=== PATIENT | female | born 1995 | race Caucasian/White ===

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

== ENCOUNTER 2017-03-28 21:22 | Emergency (ER) | payer OTHER ==
[~2017-03-28] VITALS: Ht 170.2 cm; Wt 75.7 kg
[2017-03-28 21:24] VITALS: TEMP 37.1; Ht 170.2 cm; Wt 75.7 kg
[2017-03-28] MEDS ORDERED: KETOROLAC TROMETHAMINE 15 MG/ML VIAL IV STA (21:58)
[2017-03-28 23:03] LABS: BASO % 0.1 %; BASO ABS # 0.01 K/uL (0-0.2); COMPLETE YES; EOS % 1.2 %; HEMATOCRIT 42.5 % (37-47); IG% 0.2 %; LYMPH % 33.5 %; MEAN CELL VOLUME 88.2 fL (80-100); MEAN CORPUSCULAR HEMOGLOBIN 29.5 pg (25-34); MEAN CORPUSCULAR HGB CONC 33.4 g/dl (32-36); MEAN PLATELET VOLUME 10.5 fL (7.4-10.4); MONO % 9.1 %; NEUT % 55.9 %; PLATELET COUNT 243 K/uL (130-400); RED BLOOD COUNT 4.82 M/uL (4.2-5.4); WHITE BLOOD COUNT 8.36 K/uL (4.8-10.8)
[2017-03-28] MEDS ORDERED: CHOL1000 PO (23:04)
[2017-03-28 23:31] LABS: BUN/CREATININE RATIO 19.7 (10-20); CALCIUM 9.5 mg/dl (8.5-10.1); CREATININE 0.79 mg/dl (0.60-1.20); POTASSIUM 3.4 mmol/L (3.5-5.1)
[2017-03-28 23:33] LABS: ALB/GLOB RATIO 1.1 (0.9-2)
[2017-03-29 00:35] LABS: URINE APPEARANCE CLEAR (CLEAR); URINE BILIRUBIN NEG (NEG); URINE COLOR YELLOW; URINE NITRITE NEG (NEG); URINE SPECIFIC GRAVITY 1.012 (1.000-1.030); UROBILINOGEN NEG (NEG); ZZUR CULT IF INDIC CLEAN CATCH NO
[2017-03-29 00:37] LABS: MANUAL MICROSCOPIC REQUIRED? NO; REVIEW REQ? NO
--- NOTE | 2017-03-29 02:46 | EMERGENCY ROOM VISIT NOTE ---
History First contact with patient: 21:34 Chief Complaint: ABDOMINAL PAIN Stated Complaint: ABD PAIN Nursing Triage Summary: Pt reports left sided abd pain that began yesterday, subsided this morning, returned worse this evening. Denies urinary s/sx. Denies n/v/d. History of Present Illness The patient is a 22 year old female who presents to the Emergency Room with complaints of left lower abdominal pain. The patient reports that she developed some stabbing left lower quadrant abdominal pain last night. She states this lasted for 1.5-2 hours and then resolved. She states the pain returned today. She rates the discomfort a 7/10. She states it is intermittent in the left lower abdomen. She denies any associated nausea, vomiting, urinary symptoms or changes in bowel movements. She does not have a history of abdominal surgeries. She denies any abnormal vaginal discharge. Her last menstrual period was at the beginning of the month. She states the pain is worsened with walking and moving. Review of Systems A complete 10 point review of systems was reviewed with the patient with pertinent positives and negatives as per history of present illness. All else were negative. Social History Smoking Status: Never Smoker Current/Historical Medications Scheduled Cholecalciferol (Vitamin D3), 1,000 INTER.UNIT PO DAILY Physical Exam Vital Signs Date Time Temp Pulse Resp B/P (MAP) Pulse Ox O2 Delivery O2 Flow Rate FiO2 03/29/17 02:56 85 16 114/69 98 03/29/17 02:32 85 16 114/69 98 Room Air 03/29/17 00:19 91 18 120/66 98 Room Air 03/28/17 21:24 37.1 105 18 125/78 97 Room Air Physical Exam VITALS: Vitals are noted on the nurse's note and reviewed by myself. Vital signs stable. GENERAL: This is a 22-year-old female, in no acute distress, nondiaphoretic, well-developed well-nourished. SKIN: Capillary reflex less than 2 seconds. HEENT: Normocephalic. PERRLA. EOMI. Nares patent. Mucous membranes moist. Neck is supple without nuchal rigidity. HEART: Regular rate and rhythm without murmurs gallops or rubs. LUNGS: Clear to auscultation bilaterally without wheezes, rales or rhonchi. No retractions or accessory muscle use. ABDOMEN: Positive bowel sounds x 4. There is mild tenderness in the left lower quadrant and suprapubic region. No guarding or rebound tenderness. NEURO: Patient was alert and oriented to person place and time. Medical Decision & Procedures ER Provider Diagnostic Interpretation: US PELVIC/ENDOVAG: Complex right adnexal lesion measuring 2.7 x 2.0 x 2.1 cm. Appearance is most suggestive of a hemorrhagic cyst, but there is a 2 mm vascular mural nodule and follow-up is recommended. Left ovary is within normal limits. Blood flow demonstrated in bilateral ovaries. Retroverted uterus. Uterus is mildly enlarged. The tracker complex is within normal limits. Small amount of simple free fluid in pelvis. Radiologist: Nadir Huff MD Laboratory Results 03/28/17 22:45 Red Blood Count 4.82, Mean Corpuscular Volume 88.2, Mean Corpuscular Hemoglobin 29.5, Mean Corpuscular Hemoglobin Concent 33.4, Mean Platelet Volume 10.5, Neutrophils (%) (Auto) 55.9, Lymphocytes (%) (Auto) 33.5, Monocytes (%) (Auto) 9.1, Eosinophils (%) (Auto) 1.2, Basophils (%) (Auto) 0.1, Neutrophils # (Auto) 4.67, Lymphocytes # (Auto) 2.80, Monocytes # (Auto) 0.76, Eosinophils # (Auto) 0.10, Basophils # (Auto) 0.01 03/28/17 22:45 Test 03/28/17 22:45 03/29/17 00:20 White Blood Count 8.36 K/uL (4.8-10.8) Red Blood Count 4.82 M/uL (4.2-5.4) Hemoglobin 14.2 g/dL (12.0-16.0) Hematocrit 42.5 % (37-47) Mean Corpuscular Volume 88.2 fL (80-100) Mean Corpuscular Hemoglobin 29.5 pg (25-34) Mean Corpuscular Hemoglobin Concent 33.4 g/dl (32-36) Platelet Count 243 K/uL (130-400) Mean Platelet Volume 10.5 fL (7.4-10.4) Neutrophils (%) (Auto) 55.9 % Lymphocytes (%) (Auto) 33.5 % Monocytes (%) (Auto) 9.1 % Eosinophils (%) (Auto) 1.2 % Basophils (%) (Auto) 0.1 % Neutrophils # (Auto) 4.67 K/uL (1.4-6.5) Lymphocytes # (Auto) 2.80 K/uL (1.2-3.4) Monocytes # (Auto) 0.76 K/uL (0.11-0.59) Eosinophils # (Auto) 0.10 K/uL (0-0.5) Basophils # (Auto) 0.01 K/uL (0-0.2) RDW Standard Deviation 41.3 fL (36.4-46.3) RDW Coefficient of Variation 12.9 % (11.5-14.5) Immature Granulocyte % (Auto) 0.2 % Immature Granulocyte # (Auto) 0.02 K/uL (0.00-0.02) Anion Gap 10.0 mmol/L (3-11) Est Creatinine Clear Calc Drug Dose 120.6 ml/min Estimated GFR () 124.9 Estimated GFR (Non- 107.8 BUN/Creatinine Ratio 19.7 (10-20) Calcium Level 9.5 mg/dl (8.5-10.1) Total Bilirubin 0.3 mg/dl (0.2-1) Aspartate Amino Transf (AST/SGOT) 18 U/L (15-37) Alanine Aminotransferase (ALT/SGPT) 27 U/L (12-78) Alkaline Phosphatase 60 U/L (45-117) Total Protein 8.0 gm/dl (6.4-8.2) Albumin 4.1 gm/dl (3.4-5.0) Globulin 3.9 gm/dl (2.5-4.0) Albumin/Globulin Ratio 1.1 (0.9-2) Lipase 91 U/L (73-393) Urine Color YELLOW Urine Appearance CLEAR (CLEAR) Urine pH 7.0 (4.5-7.5) Urine Specific [place] 1.012 (1.000-1.030) Urine Protein NEG (NEG) Urine Glucose (UA) NEG (NEG) Urine Ketones NEG (NEG) Urine Occult Blood NEG (NEG) Urine Nitrite NEG (NEG) Urine Bilirubin NEG (NEG) Urine Urobilinogen NEG (NEG) Urine Leukocyte Esterase NEG (NEG) Urine Test NEG (NEG) Medications Administered Medications (Trade) Dose Ordered Sig/Rylee Route Start Time Stop Time Status Last Admin Dose Admin Ketorolac Tromethamine (Toradol Inj) 15 mg NOW STAT IV 03/28/17 21:58 03/28/17 22:00 DC 03/28/17 23:04 15 MG ED Course The patient was evaluated as above. Labs were drawn and IV access was obtained. Patient was medicated with 15 mg Toradol IV. Patient was reevaluated and states that her pain has resolved after receiving the Toradol. Pelvic ultrasound was performed and read by mariorad as above. Discharge instructions were reviewed with the patient. The patient verbalized understanding of my assessment and treatment plan and was discharged home in good condition. Medical Decision Differential diagnosis includes ovarian cyst, recurrent torsion, ectopic , appendicitis, gastroenteritis, urinary tract infection, among others. The patient is a 22-year-old female who presents today complaining of left lower quadrant abdominal pain. Labs revealed no leukocytosis, anemia or concerning electrolyte abnormalities. Urinalysis was not suggestive of infection. Urine was negative. Pelvic ultrasound was obtained and did show a right-sided ovarian cyst and small amount of simple free fluid within the pelvis. The patient's pain resolved after receiving Toradol. There is nothing on exam to suggest an acute infectious or inflammatory process. I do not feel that any further imaging is necessary. Findings were discussed with the patient. She will follow-up with her primary care provider or [facility] as needed. She was advised to follow-up with [facility] , as she will need a repeat pelvic ultrasound. She was encouraged to take ibuprofen at home for pain. The patient's case was reviewed with Dr. Blood, ED attending physician, who agreed with my assessment and treatment plan. Based on the patient's presentation and work up, I feel the patient is stable for outpatient treatment. The patient was educated to return to the emergency department for any worsening of their current condition or new/concerning symptoms. She will follow up with her [facility] and PCP. Medication Reconcilliation Current Medication List: was personally reviewed by me Blood Pressure Screening Patient's blood pressure: Normal blood pressure Impression Primary Impression: Left lower quadrant pain Additional Impression: Ovarian cyst Departure Information Dispostion Home / Self-Care Condition GOOD Referrals No Doctor, Assigned (PCP) Patient Instructions My [facility] Additional Instructions You have been treated in the Emergency Department for your Abdominal Pain. Laboratory results and imaging studies have ruled out any emergent causes for your abdominal pain which would warrant admission or surgery. Your ultrasound showed an ovarian cyst. You should follow-up with [facility] for further evaluation of this. For pain control, you can use the following [id number] medicines (if >12 yo): - Regular strength (325mg/tab) Tylenol (acetaminophen) 2 tabs every 4-6 hours as needed. Do not exceed 12 tablets in a 24 hour period. Avoid taking more than 4 grams (4000 mg) of Tylenol per day. This includes any other sources of acetaminophen you may take on a regular basis. - Regular strength (200 mg/tab) Advil (ibuprofen) 3 tabs every 6 hours as needed. Do not exceed a dose of 3200 mg per day. Drink plenty of water and stay well hydrated. As with any trip to the Emergency Department, you should follow-up with your Primary Care Provider from today's visit. Return to the emergency department if your symptoms persist despite treatment plan outlined above or if the following symptoms occur: Fevers, vomiting, or worsening abdominal pain. Problem Qualifiers Additional Impression: Ovarian cyst Laterality: right Qualified Codes: N83.201 - Unspecified ovarian cyst, right side
[2017-03-29 02:56] VITALS: BP 114/69; PULSE 85; O2SAT 98
--- NOTE | 2017-03-29 07:42 | DIAGNOSTIC IMAGING REPORT ---
PELVIC ULTRASOUND, TRANSABDOMINAL AND TRANSVAGINAL HISTORY: Left lower quadrant pain. COMPARISON: None. FINDINGS: Uterus: The uterus is retroflexed. The uterus is normal in size. Endometrial stripe: 9 mm in thickness. Right ovary: A 2.7 cm complex lesion without demonstrated internal septations. This likely represents a hemorrhagic cyst. There is a questionable tiny mural nodule within this lesion. Normal color flow within the right ovary. Left ovary: Normal in size and demonstrates normal color flow. Miscellaneous:Small amount of pelvic free fluid. IMPRESSION: 1. A 2.7 cm complex lesion within the right ovary which appears to represent a hemorrhagic cyst. There is a questionable 2 mm mural nodule within this lesion. Therefore, recommend follow-up pelvic ultrasound in 6-8 weeks to ensure resolution and exclude the less likely possibility of a ovarian mass. 2. Small amount of pelvic free fluid. Electronically signed by: Carlos Brush M.D. 03/29/2017 7:41 AM Dictated Date/Time: 03/29/2017 7:39 AM
== END 2017-03-29 02:58 | disposition home or self-care (01) ==
LOC: C.EDB 21:23
DX: R10.32 Left lower quadrant pain (principal); N83.201 Unspecified ovarian cyst, right side